=== PATIENT | male | born 1995 | race Caucasian/White ===

== ENCOUNTER 2021-12-12 17:37 | Emergency (ER) | payer OTHER ==
[2021-12-12 18:27] LABS: BILIRUBIN NEGATIVE (NEGATIVE); BLOOD NEGATIVE Ery/uL (NEGATIVE); CLARITY CLEAR (CLEAR); COLOR YELLOW (YELLOW); GLUCOSE (U) NORMAL (NORMAL); LEUKOCYTES 1+ Leu/uL (NEGATIVE); NITRITE NEGATIVE (NEGATIVE); PROTEIN NEGATIVE (NEGATIVE); SPECIFIC GRAVITY 1.015 (1.001-1.030); UROBILINOGEN 0.2 mg/dL (0.2-1.0)
[2021-12-12 18:36] LABS: BACTERIA TRACE
[2021-12-12 18:37] LABS: AMORPHOUS URATES CRYSTALS MODERATE; MUCOUS TRACE; SQUAMOUS EPITHELIAL CELLS RARE
[2021-12-12 19:25] LABS: BASOPHIL 0.4 % (0-2); EOSINOPHIL 0.8 % (0-5); HGB 14.6 g/dl (13.2-18.0); MCHC 34.8 g/dL (32.0-36.0); MCV 83.5 fL (78.0-100.0); MONOCYTE 11.2 % (0-12); NEUTROPHIL 70.3 % (41-80); NRBC 0; PLT 255 K/uL (150-400); RBC 5.03 M/uL (4.70-6.00); RDW 12.7 % (11.5-14.0); WBC 7.6 K/uL (4.0-10.5)
[2021-12-12 19:45] LABS: ALBUMIN 3.6 g/dL (3.4-5.0); BILIRUBIN - TOTAL 0.5 mg/dL (0.2-1.0); BUN/CREAT RATIO (CALC) 15.5 RATIO; CREATININE 0.71 mg/dL (0.67-1.17); GLOBULIN (CALCULATION) 3.9 g/dL; POTASSIUM 4.2 mmol/L (3.5-5.1); TOTAL PROTEIN 7.5 g/dL (6.4-8.2)
[2021-12-12] MEDS ORDERED: VIBRAMYCIN100 MG PO (20:41)
== END 2021-12-12 20:50 | disposition home or self-care (01) ==
LOC: FER 17:37
PROVIDERS: Physician Assistant
DX: R10.31 Right lower quadrant pain (principal); F17.200 Nicotine dependence, unspecified, uncomplicated
CPT/HCPCS: 36415; 80053; 81001; 85025; J0696